=== PATIENT | female | born 1945 | race American Indian/Alaskan Native ===

== ENCOUNTER 2021-07-13 06:13 | Day surgery (SDC) | payer MEDICARE ==
[~2021-07-13 06:13] MED LIST: SODIUM CHLORIDE 0.9% 1000 ML 1,000 ML IV SCH; ceFAZolin/Water 2 GM/20 ML 2 GM/20 ML SYRINGE IV NR
[2021-07-13] MEDS ORDERED: LACTATED RINGERS 1,000 ML ONE (07:19)
[2021-07-13] MEDS ORDERED: LACTATED RINGERS 1,000 ML IV SCH (07:30)
[2021-07-13] MEDS ORDERED: LIDOCAINE MPF (2%) 20 MG/1 ML VIAL 5 ML ONE (07:52)
[2021-07-13] MEDS ORDERED: propofoL 200 MG/20 ML VIAL IV ONE (07:52)
[2021-07-13] MEDS ORDERED: fentaNYL 100 MCG/2 ML INJ ONE (07:52)
[2021-07-13] MEDS ORDERED: ONDANSETRON 4 MG/2 ML INJ ONE (07:52)
[2021-07-13 07:55] LABS: Calcium 9.8 mg/dL (8.4-10.2)
[2021-07-13] MEDS ORDERED: SODIUM CHLORIDE 0.9% 500 ML 500 ML ONE (08:13)
[2021-07-13] MEDS ORDERED: BUPIVACAINE/PF (0.25%) 2.5 MG/ML 30 ML VIAL INFILTRATI ONE (08:13)
[2021-07-13] MEDS ORDERED: HEPARIN 10,000 UNITS/10 ML VIAL ONE (08:13)
[2021-07-13] MEDS ORDERED: LIDOCAINE (1%) 10 MG/1 ML VIAL 20 ML MDV ONE (08:13)
[2021-07-13 08:30] LABS: Hematocrit 31.6 % (30.3-42.9); Hemoglobin 9.8 gm/dl (10.1-14.3); Mean Corpuscular HGB Conc 31 % (30-34); Mean Corpuscular Volume 93 fl (79-97); Platelet Count 196 K/mm3 (140-440); Red Blood Count 3.38 M/mm3 (3.65-5.03); Red Cell Distribution Width 15.5 % (13.2-15.2)
[2021-07-13] MEDS ORDERED: ePHEDrine SULFATE 50 MG/1 ML INJ ONE (08:54)
[2021-07-13] MEDS ORDERED: SODIUM CHLORIDE 0.9% 500 ML IVPB IRRIGATION ONE (09:19)
[2021-07-13] MEDS ORDERED: HEPARIN 10,000 UNITS/10 ML VIAL IV ONE (09:19)
[2021-07-13] MEDS ORDERED: SODIUM CHLORIDE 0.9% IRR 1,500 ML BOTTLE IR ONE (09:19)
[2021-07-13] MEDS ORDERED: BUPIVACAINE/PF (0.5%) 5 MG/1 ML 30 ML VIAL INFILTRATI ONE (09:20)
[2021-07-13] MEDS ORDERED: LIDOCAINE (1%) 10 MG/1 ML VIAL 20 ML MDV INFILTRATI ONE (09:20)
[2021-07-13] MEDS ORDERED: DEXTROSE 50% IN WATER (25GM) 50 ML SYRINGE IV SCH (10:00)
--- NOTE | 2021-07-13 10:03 | Short Stay Summary ---
Short Stay Documentation Date of service: 07/13/21 Narrative H&P: See H&P - History H&P: obtained from office - Allergies and Medications Current Medications: Allergies No Known Allergies Allergy (Verified 07/06/21 14:52) Home Medications Medication Instructions Recorded Confirmed Last Taken Type Glimepiride [Amaryl] 2 mg PO DAILY 07/06/21 07/13/21 07/12/21 09:00 History Levothyroxine [Synthroid] 88 mcg PO QAM 07/06/21 07/13/21 07/12/21 09:00 History Metoprolol [Lopressor] 100 mg PO BID 07/06/21 07/13/21 07/13/21 05:00 History Sodium Bicarbonate 650 mg PO DAILY 07/06/21 07/13/21 07/12/21 09:00 History amLODIPine [Norvasc] 10 mg PO DAILY 07/06/21 07/13/21 07/13/21 05:00 History Active Medications Cefazolin Sodium (Ancef/Sterile Water 2 Gm/20 Ml) 2 gm in 20 mls @ 80 mls/hr IV PREOP NR; Protocol Stop: 07/13/21 21:00 Sodium Chloride (Nacl 0.9% 1000 Ml) 1,000 mls @ 42 mls/hr IV DIRECT DAREK Stop: 07/13/21 23:59 Lactated Ringer's (Lactated Ringers) 1,000 mls @ 42 mls/hr IV DIRECT DAREK - Brief post op/procedure progress note Date of procedure: 07/13/21 Pre-op diagnosis: Stage IV Chronic Renal Sufficiency Post-op diagnosis: same Procedure: Creation of Left Brachiocephalic Arteriovenous Fistula Anesthesia: GETA Surgeon: GARRETT THACKER Estimated blood loss: minimal Pathology: none Condition: stable - Disposition Condition at discharge: Good Disposition: 01 HOME / SELF CARE / HOMELESS Short Stay Discharge Plan Activity: other (No heavy lifting with left arm for 2 weeks. You stress ball with left hand as often as possible.) Wound: open to air, keep clean and dry, other (Okay to shower and wash the left arm wound with soap and water but do not soak in water for 2 weeks.) Follow up with: GARRETT THACKER MD [Staff Physician] - 14 Days Prescriptions: HYDROcodone/APAP 5-325 [[place] 5/325] 1 each PO Q4HR PRN #30 tablet PRN Reason: Pain
--- NOTE | 2021-07-13 10:06 | Operative Report ---
Operative Report Operative Report: Date of procedure: 07/13/2021 Pre-operative diagnosis: Stage IV Chronic Renal Insufficiency Post-operative diagnosis: Same Procedure(s): Creation of Left brachial Artery to Cephalic Vein Arteriovenous Fistula Surgeon: Osito Powell MD Counter Intelligence Technician: None Anesthesia: General Endotracheal Anesthesia EBL: Minimal Counts: Correct Complications: None Condition: Stable Findings: Successful creation of left brachiocephalic arteriovenous fistula with palpable thrill and palpable radial pulse at the completion of the case. Specimen: None Indications: The patient is a 76-year-old female with a history of chronic renal sufficiency who was not yet on hemodialysis however it is anticipated that she will require hemodialysis in the near future. She is in need of long-term dialysis access to prevent insertion of a permacath when progresses to requiring hemodialysis. She is right-hand dominant and was found to have suitable vein for creation of an arteriovenous fistula in her left upper extremity. She was offered creation of a left brachiocephalic arteriovenous fistula. She was given the risk, benefits, and alternative procedures and consented to the procedure. Description of Procedure: The patient was brought to the operating room and laid in supine position. Af ter general endotracheal anesthesia was achieved her left arm was prepped and draped in normal sterile fashion. A transverse incision was then made and carried down to the cephalic vein using sharp dissection. The vein was dissected out both proximally and distally and suture ligated and divided distally. I flushed the vein with heparinized saline and flow was controlled with a bulldog clamp. I then dissected out the brachial artery through this incision circumferentially both proximal and distal and controlled the artery with vessel loops. I systemically heparinized the patient with 2000 units of heparin IV and used angled DeBakey clamps to control flow through the artery. I created an arteriotomy using an 11 blade and Bronson scissors. I created an end to side anastomosis between the cephalic vein and brachial artery using a 6-0 Prolene in running fashion. Prior to completing the anastomosis I flashed the artery both proximally and distally and then flushed the anastomosis with heparinized saline to remove any debris. I then completed the anastomosis and removed all clamps allowing flow into the fistula which had an adequate thrill. I achieved hemostasis with a combination of Quick Clot and electrocautery. Once hemostasis had been achieved I closed the wound in 2 layers using a 3-0 Vicryl in a running fashion in the deep dermal layer and a 4-0 Monocryl in running fas hion in the subcuticular layer. I then dressed the wound with Dermabond. The patient tolerated the procedure well. All sponge, needle, and instrument counts were correct. The patient was taken to the recovery area in stable condition.
[2021-07-13] MEDS ORDERED: DEXTROSE 50% IN WATER (25GM) 50 ML SYRINGE IV ONE (10:15)
--- NOTE | 2021-07-13 11:20 | Post Anesthesia Evaluation ---
- Post Anesthesia Evaluation Patient Participated: Yes Airway Patent: Yes Stable Respiratory Function: Yes Nausea/Vomiting: No Temp > 96.8F: Yes Pain Manageable: Yes Adequeate Hydration: Yes Anesthesia Complications: No
[2021-07-13 11:59] VITALS: BP 129/58
== END 2021-07-13 11:25 | disposition home or self-care (01) ==
LOC: OR 06:13
PROVIDERS: ATTEND Surgery Vascular Surgery
DX: I12.0 Hypertensive chronic kidney disease with stage 5 chronic kidney disease or end stage renal disease (principal); N18.6 End stage renal disease; E78.00 Pure hypercholesterolemia, unspecified; E03.9 Hypothyroidism, unspecified; M19.90 Unspecified osteoarthritis, unspecified site; G47.30 Sleep apnea, unspecified; Z87.891 Personal history of nicotine dependence; Z79.899 Other long term (current) drug therapy; Z98.890 Other specified postprocedural states
CPT/HCPCS: 36415; 36821; 80048; 82962; 85027; J0690; J1644; J2405; J2704; J3010; J7030; J7040; J7120